=== PATIENT | male | born 1960 | race Caucasian/White ===

== ENCOUNTER 2017-10-10 06:48 | Emergency (ER) | payer BC ==
[2017-10-10] MEDS ORDERED: Ketorolac 30 MG/ML SDV IM ONE (07:06)
--- NOTE | 2017-10-10 07:57 | EDM.PDOC ---
ED HPI GENERAL MEDICAL PROBLEM - General Chief Complaint: Lower Extremity Injury/Pain Stated Complaint: PAIN LT LEG Time Seen by Provider: 10/10/17 06:48 Source of Information: Reports: Patient History Limitations: Reports: No Limitations - History of Present Illness INITIAL COMMENTS - FREE TEXT/NARRATIVE: History of present illness: []Patient has chronic left foot and ankle pain. He was seen in [place] by a specialist who diagnosed with rheumatoid and osteoarthritis and put him on prednisone and sulfasalazine. He started these meds last week and states this pain and swelling is worse. Review of systems: As per history of present illness and below otherwise all systems reviewed and negative. Past medical history: As per history of present illness and as reviewed below otherwise noncontributory. Surgical history: As per history of present illness and as reviewed below otherwise noncontributory. Social history: No reported history of drug or alcohol abuse. Family history: As per history of present illness and as reviewed below otherwise noncontributory. Physical exam: General: Well developed, well nourished in NAD HEENT: Atraumatic, normocephalic, pupils reactive, negative for conjunctival pallor or scleral icterus, mucous membranes moist, throat clear, neck supple, nontender, trachea midline. Lungs: Clear to auscultation, breath sounds equal bilaterally, chest nontender. Heart: S1S2, regular, negative for clicks, rubs, or JVD. Abdomen: Soft, nondistended, nontender. Negative for masses or hepatosplenomegaly. Negative for costovertebral tenderness. Pelvis: Stable nontender. Genitourinary: Deferred. Rectal: Deferred. Extremities: Atraumatic, mild edema and no erythema is over the left lateral malleolus and great toe without signs of infection. negative for cords or calf pain. Neurovascular unremarkable. Neuro: Awake, alert, oriented. Cranial nerves II through XII unremarkable. Cerebellum unremarkable. Motor and sensory unremarkable throughout. Exam nonfocal. Diagnostics: []X-ray ankle negative for fracture dislocation, white count and uric acid are normal. Therapeutics: []Toradol IM with improvement Impression: []Arthritis left lower extremity: ankle and foot Plan: []Take high-dose fish oil, ice and elevate lower extremity to alleviate some swelling and pain follow-up with primary care continue meds as directed. Definitive disposition and diagnosis as appropriate pending reevaluation and review of above. left ankle Pain Score (Numeric/FACES): 10 - Related Data Allergies Allergy/AdvReac Type Severity Reaction Status Date / Time No Known Allergies Allergy Verified 10/10/17 06:59 Home Meds: Home Meds Prednisone [IJD: Prednisone] 10 mg PO DAILY 10/10/17 [History] sulfaSALAzine 500 mg PO BID 10/10/17 [History] Past Medical History - Past Health History Medical/Surgical History: Denies Medical/Surgical History Cardiovascular History: Reports: Hypertension Gastrointestinal History: Reports: None Musculoskeletal History: Reports: Gout, Osteoarthritis, RA - Past Surgical History Cardiovascular Surgical History: Reports: None GI Surgical History: Reports: Appendectomy Musculoskeletal Surgical History: Reports: None Social & Family History - Family History Family Medical History: Noncontributory - Tobacco Use Smoking Status *Q: Never Smoker Years of Tobacco use: 15 Used Tobacco, but Quit: Yes - Caffeine Use Caffeine Use: Reports: Coffee, Soda - Alcohol Use Days Per Week of Alcohol Use: 0 Number of Drinks Per Day: 0 Total Drinks Per Week: 0 - Recreational Drug Use Recreational Drug Use: No Drug Use in Last 12 Months: No Review of Systems - Review of Systems Review Of Systems: See Below (See history of present illness) ED EXAM, GENERAL - Physical Exam Exam: See Below (See history of present illness) Course - Vital Signs Last Recorded V/S: Last Vital Signs Temp 97 F 10/10/17 06:56 Pulse 88 10/10/17 06:56 Resp 21 H 10/10/17 06:56 BP 168/96 H 10/10/17 06:56 Pulse Ox 96 10/10/17 06:56 - Orders/Labs/Meds Orders: Active Orders 24 hr Category Date Time Status Ankle Min 3V Lt [CR] Stat Exams 10/10/17 07:06 Taken Labs: Laboratory Tests 10/10/17 10/10/17 Range/Units 07:16 07:16 WBC 11.34 H (4.0-11.0) K/uL RBC 4.64 (4.50-5.90) M/uL Hgb 13.8 (13.0-17.0) g/dL Hct 41.5 (38.0-50.0) % MCV 89.4 (80.0-98.0) fL MCH 29.7 (27.0-32.0) pg MCHC 33.3 (31.0-37.0) g/dL RDW Std Deviation 42.0 (28.0-62.0) fl RDW Coeff of Chava 13 (11.0-15.0) % Plt Count 205 (150-400) K/uL MPV 9.50 (7.40-12.00) fL Neut % (Auto) 69.1 (48.0-80.0) % Lymph % (Auto) 19.8 (16.0-40.0) % [place] % (Auto) 9.0 (0.0-15.0) % Eos % (Auto) 1.9 (0.0-7.0) % Baso % (Auto) 0.2 (0.0-1.5) % Neut # (Auto) 7.8 H (1.4-5.7) K/uL Lymph # (Auto) 2.3 (0.6-2.4) K/uL [place] # (Auto) 1.0 H (0.0-0.8) K/uL Eos # (Auto) 0.2 (0.0-0.7) K/uL Baso # (Auto) 0.0 (0.0-0.1) K/uL Nucleated RBC % 0.0 /100WBC Nucleated RBCs # 0 K/uL Uric Acid 5.5 (2.1-7.4) mg/dL Meds: Medications Discontinued Medications Generic Name Dose Route Start Last Admin Trade Name Freq PRN Reason Stop Dose Admin Ketorolac Tromethamine 30 mg 10/10/17 07:06 10/10/17 07:22 Toradol IM 10/10/17 07:07 30 mg ONETIME ONE Administration Departure - Departure Time of Disposition: 07:57 Disposition: Home, Self-Care 01 Condition: Good Clinical Impression: Arthritis of left lower extremity - Discharge Information Referrals: PCP,None [Primary Care Provider] - Forms: ED Department Discharge Additional Instructions: The following information is given to patients seen in the emergency department who are being discharged to home. This information is to outline your options for follow-up care. We provide all patients seen in our emergency department with a follow-up referral. The need for follow-up, as well as the timing and circumstances, are variable depending upon the specifics of your emergency department visit. If you don't have a primary care physician on staff, we will provide you with a referral. We always advise you to contact your personal physician following an emergency department visit to inform them of the circumstance of the visit and for follow-up with them and/or the need for any referrals to a consulting specialist. The emergency department will also refer you to a specialist when appropriate. This referral assures that you have the opportunity for follow-up care with a specialist. All of these measure are taken in an effort to provide you with optimal care, which includes your follow-up. Under all circumstances we always encourage you to contact your private physician who remains a resource for coordinating your care. When calling for follow-up care, please make the office aware that this follow-up is from your recent emergency room visit. If for any reason you are refused follow-up, please contact the [facility] Emergency Department at and asked to speak to the emergency department charge nurse. Follow-up with primary care physician, take a high-dose fish oil such as " [place] [employer]" [id number] mg of omega-3 daily. Ice and elevate foot above the level her heart as much as possible [facility] [address] [place] [address] - My Orders Last 24 Hours: My Active Orders 10/10/17 07:06 Ankle Min 3V Lt [CR] Stat - Assessment/Plan Last 24 Hours: My Active Orders 10/10/17 07:06 Ankle Min 3V Lt [CR] Stat
[2017-10-10 08:18] VITALS: BP 175/87
--- NOTE | 2017-10-10 10:42 | CR ---
EXAM DATE: 10/10/17 PATIENT'S AGE: 57 Patient: TERRY KHAN Facility: [place], [place] Site . Site : 1960 Study: XRay Extremity Left ankle [id number]/30/2017 7:38:08 AM Ordering Physician: Rodrick Espino Final Report: INDICATION: Pain and swelling. COMPARISON: none TECHNIQUE: Three view left ankle FINDINGS: The bones are anatomically aligned. There is uniform bone mineral density. There is no evidence of fracture, erosion or intrinsic bone lesion. There is a small plantar calcaneal bone spur. There is minimal soft tissue swelling about the lateral malleolus. IMPRESSION: Minimal soft tissue swelling. No intrinsic bone lesion. Dictated by Irwin Alonzo MD @ Oct 10 2017 7:38AM (Electronic Signature) Report Signed by Proxy. AUGUST
== END 2017-10-10 08:14 | disposition home or self-care (01) ==
LOC: MW.ED 06:48
DX: M19.072 Primary osteoarthritis, left ankle and foot (principal); I10 Essential (primary) hypertension; Z87.891 Personal history of nicotine dependence; Z79.899 Other long term (current) drug therapy
CPT/HCPCS: 36415; 73610; 84550; 85025; 96372; 99283; J1885; 99284

== ENCOUNTER 2019-08-26 11:46 | Emergency (ER) | payer BC ==
--- NOTE | 2019-08-26 12:15 | EDM.PDOC ---
ED HPI GENERAL MEDICAL PROBLEM - General Chief Complaint: Lower Extremity Injury/Pain Stated Complaint: PAIN Time Seen by Provider: 08/26/19 12:14 Source of Information: Reports: Patient History Limitations: Reports: No Limitations - History of Present Illness INITIAL COMMENTS - FREE TEXT/NARRATIVE: HISTORY AND PHYSICAL: History of present illness: Patient is a 59-year-old male presents to the ED with concern of foot pain and tingling x 5 days. He reports history of rheumatoid arthritis on methotrexate. States for the past 5-6 days he has had pain and swelling in the right ankle near the achilles tendon and tingling of both feet. He denies injury or trauma. He denies fevers, chills, nausea, vomiting. He states feet are painful to walk on but denies weakness, saddle anesthesia, bowel or bladder incontinence, back pain. Review of systems: As per history of present illness and below otherwise all systems reviewed and negative. Past medical history: As per history of present illness and as reviewed below otherwise noncontributory. Surgical history: As per history of present illness and as reviewed below otherwise noncontributory. Social history: No reported history of drug or alcohol abuse. Family history: As per history of present illness and as reviewed below otherwise noncontributory. Physical exam: General: Patient sitting comfortably in no acute distress and nontoxic appearing HEENT: Atraumatic, normocephalic, pupils reactive, negative for conjunctival pallor or scleral icterus, mucous membranes moist, throat clear, neck supple, nontender, trachea midline. No meningeal signs. Lungs: Clear to auscultation, breath sounds equal bilaterally, chest nontender. Heart: S1S2, regular, negative for clicks, rubs, or overt murmur. Abdomen: Soft, nondistended, nontender. Negative for masses or hepatosplenomegaly. Negative for costovertebral tenderness. No rigidity, rebound , guarding. Pelvis: Stable nontender. Genitourinary: Deferred. Rectal: Deferred. Extremities: Mild swelling to the right posterior ankle near the achilles with some tenderness to palpation. No warmth or erythema. Atraumatic, negative for cords or calf pain. Neurovascular unremarkable. Lower extremity strength 5/5 bilaterally. Normal sensation bilaterally. Neuro: Awake, alert, oriented. Cranial nerves II through XII unremarkable. Cerebellum unremarkable. Motor and sensory unremarkable throughout. Exam nonfocal. Notes: Diagnostics: x-ray right ankle, CBC, CMP, ESR Therapeutics: [] Prescriptions: Prednisone Impression: Right ankle pain Plan: Take medication as instructed Follow up with primary care provider and coffee blender Return to ED as needed as discussed Definitive disposition and diagnosis as appropriate pending reevaluation and review of above. bilat feet Pain Score (Numeric/FACES): 10 - Related Data Allergies Allergy/AdvReac Type Severity Reaction Status Date / Time No Known Allergies Allergy Verified 08/26/19 11:56 Home Meds: Home Meds Folic Acid 1 mg PO DAILY 08/26/19 [History] Methotrexate 6 tab PO WEEKLY 08/26/19 [History] Omeprazole 1 tab PO DAILY 08/26/19 [History] hydroCHLOROthiazide [Hydrochlorothiazide] 25 mg PO DAILY 08/26/19 [History] predniSONE 20 mg PO BID 5 Days #10 tab 08/26/19 [Rx] Past Medical History - Past Health History Medical/Surgical History: Denies Medical/Surgical History Cardiovascular History: Reports: Hypertension Gastrointestinal History: Reports: None Musculoskeletal History: Reports: Osteoarthritis, RA - Past Surgical History Cardiovascular Surgical History: Reports: None GI Surgical History: Reports: Appendectomy Musculoskeletal Surgical History: Reports: None Social & Family History - Family History Family Medical History: Noncontributory - Tobacco Use Smoking Status *Q: Never Smoker - Caffeine Use Caffeine Use: Reports: Coffee - Recreational Drug Use Recreational Drug Use: No Review of Systems - Review of Systems Review Of Systems: ROS reveals no pertinent complaints other than HPI. ED EXAM, GENERAL - Physical Exam Exam: See Below (see dictation) Course - Vital Signs Last Recorded V/S: Last Vital Signs Temp 96.3 F 08/26/19 11:54 Pulse 83 08/26/19 13:17 Resp 13 08/26/19 13:17 BP 134/92 H 08/26/19 13:17 Pulse Ox 96 08/26/19 13:17 - Orders/Labs/Meds Labs: Laboratory Tests 08/26/19 08/26/19 Range/Units 12:24 12:24 WBC 9.42 (4.0-11.0) K/uL RBC 5.06 (4.50-5.90) M/uL Hgb 15.2 (13.0-17.0) g/dL Hct 45.2 (38.0-50.0) % MCV 89.3 (80.0-98.0) fL MCH 30.0 (27.0-32.0) pg MCHC 33.6 (31.0-37.0) g/dL RDW Std Deviation 44.6 (28.0-62.0) fl RDW Coeff of Chava 14 (11.0-15.0) % Plt Count 217 (150-400) K/uL MPV 9.60 (7.40-12.00) fL Neut % (Auto) 63.8 (48.0-80.0) % Lymph % (Auto) 23.8 (16.0-40.0) % [place] % (Auto) 8.8 (0.0-15.0) % Eos % (Auto) 3.1 (0.0-7.0) % Baso % (Auto) 0.5 (0.0-1.5) % Neut # (Auto) 6.0 H (1.4-5.7) K/uL Lymph # (Auto) 2.2 (0.6-2.4) K/uL [place] # (Auto) 0.8 (0.0-0.8) K/uL Eos # (Auto) 0.3 (0.0-0.7) K/uL Baso # (Auto) 0.1 (0.0-0.1) K/uL Nucleated RBC % 0.0 /100WBC Nucleated RBCs # 0 K/uL ESR 12 (0-19) mm/hr Sodium 137 (136-148) mmol/L Potassium 3.9 (3.5-5.1) mmol/L Chloride 103 (98-107) mmol/L Carbon Dioxide 25.3 (21.0-32.0) mmol/L BUN 14 (7.0-18.0) mg/dL Creatinine 0.9 (0.8-1.3) mg/dL Est Cr Clr Drug Dosing 79.75 mL/min Estimated GFR (MDRD) > 60.0 ml/min Glucose 113 H (74-106) mg/dL Calcium 8.9 (8.5-10.1) mg/dL Total Bilirubin 0.7 (0.2-1.0) mg/dL AST 19 (15-37) IU/L ALT 24 (14-63) IU/L Alkaline Phosphatase 113 (46-116) U/L Total Protein 7.4 (6.4-8.2) g/dL Albumin 3.4 (3.4-5.0) g/dL Globulin 4.0 (2.6-4.0) g/dL Albumin/Globulin Ratio 0.9 (0.9-1.6) Departure - Departure Time of Disposition: 13:25 Disposition: Home, Self-Care 01 Condition: Good Clinical Impression: Right ankle pain, Bilateral leg paresthesia - Discharge Information Prescriptions: predniSONE 20 mg PO BID 5 Days #10 tab Referrals: PCP,None [Primary Care Provider] - Forms: ED Department Discharge Additional Instructions: The following information is given to patients seen in the emergency department who are being discharged to home. This information is to outline your options for follow-up care. We provide all patients seen in our emergency department with a follow-up referral. The need for follow-up, as well as the timing and circumstances, are variable depending upon the specifics of your emergency department visit. If you don't have a primary care physician on staff, we will provide you with a referral. We always advise you to contact your personal physician following an emergency department visit to inform them of the circumstance of the visit and for follow-up with them and/or the need for any referrals to a consulting specialist. The emergency department will also refer you to a specialist when appropriate. This referral assures that you have the opportunity for follow-up care with a specialist. All of these measure are taken in an effort to provide you with optimal care, which includes your follow-up. Under all circumstances we always encourage you to contact your private physician who remains a resource for coordinating your care. When calling for follow-up care, please make the office aware that this follow-up is from your recent emergency room visit. If for any reason you are refused follow-up, please contact the [facility] Emergency Department at and asked to speak to the emergency department charge nurse. [facility] [address] [place] [address] [address] [address] Take medication as instructed Follow up with primary care provider and coffee blender Return to ED as needed as discussed
--- NOTE | 2019-08-26 13:02 | CR ---
Right ankle: Three views of the right ankle were obtained. Comparison: No previous ankle study. Small plantar spur is noted. Ankle mortise is symmetric. No fracture or other bony abnormality is seen. Impression: 1. Small plantar spur. 2. Right ankle study is otherwise unremarkable. Diagnostic code #2 MTDD
[2019-08-26 13:10] LABS: BLOOD UREA NITROGEN,BUN 14 mg/dL (7.0-18.0); CARBON DIOXIDE,CO2 25.3 mmol/L (21.0-32.0); CHLORIDE,CL 103 mmol/L (98-107); GLUCOSE RANDOM 113 mg/dL (74-106); POTASSIUM,K 3.9 mmol/L (3.5-5.1); SODIUM,NA 137 mmol/L (136-148)
[2019-08-26 13:17] VITALS: BP 134/92
[2019-08-26 13:40] VITALS: PULSE 84
== END 2019-08-26 13:38 | disposition home or self-care (01) ==
LOC: MW.ED 11:46
DX: M25.571 Pain in right ankle and joints of right foot (principal); R20.2 Paresthesia of skin; M06.9 Rheumatoid arthritis, unspecified; I10 Essential (primary) hypertension; Z79.899 Other long term (current) drug therapy
CPT/HCPCS: 36415; 73610-26-RT; 73610-RT; 80053; 85025; 85652; 99283-25